=== PATIENT | female | born 1975 | race Two or more races ===

== ENCOUNTER 2018-08-27 05:43 | Emergency (ER) | payer MEDICAID, OTHER ==
[~2018-08-27] VITALS: Ht 157.5 cm; Wt 63.5 kg
[2018-08-27 05:50] VITALS: BP 127/72
--- NOTE | 2018-08-27 06:11 | NUR ---
VELMA AT BEDSIDE FOR XRAY
[2018-08-27] MEDS ORDERED: KETOROLAC TROMETHAMINE INJ 30 MG/ML VIAL ONE (06:47)
[2018-08-27] MEDS: KETOROLAC TROMETHAMINE INJ 60 MG/2 ML VIAL IM ONE (07:01)
--- NOTE | 2018-08-27 08:06 | NUR ---
Patient discharged to home in stable condition. Written and verbal after care instructions given. Patient verbalizes understanding of instruction.
== END 2018-08-27 08:08 | disposition home or self-care (01) ==
LOC: ER 05:45
DX: S30.0XXA Contusion of lower back and pelvis, initial encounter (principal); F10.10 Alcohol abuse, uncomplicated; F17.200 Nicotine dependence, unspecified, uncomplicated; Y90.9 Presence of alcohol in blood, level not specified; W01.0XXA Fall on same level from slipping, tripping and stumbling without subsequent striking against object, initial encounter; Y93.89 Activity, other specified; Y92.89 Other specified places as the place of occurrence of the external cause; Y99.8 Other external cause status
CPT/HCPCS: 72100; 96372; 99283; J1885